=== PATIENT | male | born 1965 | race African-American/Black ===

== ENCOUNTER 2019-03-30 14:11 | Inpatient (IN) | payer OTHER ==
[2019-03-30 17:36] VITALS: BMI 16.9
--- NOTE | 2019-03-30 18:13 | HP ---
CIWA Score - Admission Criteria OASAS Guidelines: Admission for Medically Managed Detox: Requires at least one of the followin. CIWA greater than 12 2. Seizures within the past 24 hours 3. Delirium tremens within the past 24 hours 4. Hallucinations within the past 24 hours 5. Acute intervention needed for co occurring medical disorder 6. Acute intervention needed for co occurring psychiatric disorder 7. Severe withdrawal that cannot be handled at a lower level of care (continued vomiting, continued diarrhea, abnormal vital signs) requiring intravenous medication and/or fluids 8. Admitting History and Physical - Admission Chief Complaint: "I'm here for rehab". History of Present Illness: A 53year old male with history of anxiety, depression, and cocaine use disorder who presents here today requesting for rehab after he was referred from [facility]. Pt states his last rehab was 3[facility] ago at [facility]. Pt reports that he smokes $50 worth of cocaine daily and several attempts to quit completely has failed. History Source: Patient Limitations to Obtaining History: No Limitations - Past Medical History Psych: Yes: Addictions, Anxiety, Depression - Smoking History Smoking history: Current some day smoker Have you smoked in the past 12 months: Yes Aproximately how many cigarettes per day: 5 - Alcohol/Substance Use Hx Alcohol Use: No History of Substance Use: reports: Cocaine - Social History Usual Living Arrangement: Yes: Alone, Other (penitentiary) Do you think of yourself as: Straight/Heterosexual ADL: Independent History of Recent Travel: No Admission [facility] Allergies/Adverse Reactions: Allergies Allergy/AdvReac Type Severity Reaction Status Date / Time bee pollen Allergy Verified 03/30/19 17:31 No Known Drug Allergies Allergy Verified 03/30/19 17:31 wool Allergy Verified 03/30/19 17:31 Exam Limitations: No Limitations - Ebola screening Have you traveled outside of the country in the last 21 days: No Have you had contact with anyone from an Ebola affected area: No Have you been sick,other than usual withdrawal symptoms: No Do you have a fever: No - Review of Systems Constitutional: Loss of Appetite EENT: reports: No Symptoms Reported Respiratory: reports: No Symptoms reported Cardiac: reports: No Symptoms Reported GI: reports: No Symptoms Reported : reports: No Symptoms Reported Musculoskeletal: reports: No Symptoms Reported Integumentary: reports: No Symptoms Reported Endocrine: reports: No Symptoms Reported Hematology: reports: No Symptoms Reported Psychiatric: reports: Mood/Affect Appropiate, Anxious Other Systems: Reviewed and Negative Patient History - Patient Medical History Hx Asthma: No Hx Chronic Obstructive Pulmonary Disease (COPD): No Hx Cancer: No Hx Cardiac Disorders: No Hx Congestive Heart Failure: No Hx Hypertension: No Hx Hypercholesterolemia: No Hx Pacemaker: No HX Cerebrovascular Accident: No Hx Seizures: No Hx Diabetes: No Hx Gastrointestinal Disorders: No Hx Liver Disease: No Hx Genitourinary Disorders: No Hx Sexually Transmitted Disorders: No Hx Renal Disease (ESRD): No Hx Thyroid Disease: No Hx Human Immunodeficiency Virus (HIV): No (can't recall the last time he did HIV test.) Hx Hepatitis C: No Hx Depression: Yes Hx Suicide Attempt: No Hx Bipolar Disorder: No Hx Schizophrenia: No - Patient Surgical History Past Surgical History: Yes Hx Neurologic Surgery: No Hx Cataract Extraction: No Hx Cardiac Surgery: No Hx Lung Surgery: No Hx Breast Surgery: No Hx Breast Biopsy: No Hx Abdominal Surgery: No Hx Appendectomy: No Hx Cholecystectomy: No Hx Genitourinary Surgery: No Hx Section: No Hx Orthopedic Surgery: Yes (RIGHT KNEE SX, LEFT SHOULDER SX, 1981) Anesthesia Reaction: No - PPD History Previous Implant?: Yes Documented Results: Negative w/o proof PPD to be Administered?: Yes - Smoking Cessation Smoking history: Current some day smoker Have you smoked in the past 12 months: Yes Aproximately how many cigarettes per day: 5 Cigars Per Day: 0 Hx Chewing Tobacco Use: No Initiated information on smoking cessation: Yes 'Breaking Loose' booklet given: 03/30/19 - Substance & Tx. History Hx Substance Use Treatment: No - Substances abused Cocaine Substance route: Smoking Frequency: Daily Amount used: $50 Age of first use: 21 Date of last use: 03/29/19 Admission Physical Exam [facility] - Vital Signs Vital Signs: Vital Signs - 24 hr 03/30/19 17:33 Temperature 97.8 F Pulse Rate 94 H Respiratory 18 Rate Blood Pressure 136/80 - Physical General Appearance: Yes: No Apparent Distress HEENTM: Yes: EOMI, Hearing grossly Normal, Normal Voice, KARIE, Tm's normal Respiratory: Yes: Chest Non-Tender, Lungs Clear, Normal Breath Sounds, No Respiratory Distress Neck: Yes: No masses,lesions,Nodules, Trachea in good position Breast: Yes: Within Normal Limits Cardiology: Yes: Regular Rhythm, Regular Rate, S1, S2 Abdominal: Yes: Normal Bowel Sounds, Non Tender, Flat, Soft Genitourinary: Yes: Within Normal Limits Back: Yes: Normal Inspection Musculoskeletal: Yes: full range of Motion, Gait Steady Extremities: Yes: Normal Capillary Refill, Normal Range of Motion, Non-Tender Neurological: Yes: Alert, Motor Strength 5/5, Normal Response Integumentary: Yes: Dry, Warm Lymphatic: Yes: Within Normal Limits - Diagnostic (1) Anxiety disorder Current Visit: Yes Status: Acute (2) Depressive disorder Current Visit: Yes Status: Chronic (3) Cocaine dependence Current Visit: No Status: Acute (4) Cocaine-induced mood disorder Current Visit: No Status: Chronic Cleared for Admission BHS - Detox or Rehab Claeared for Rehab Admission: Yes Breathalyzer - Breathalyzer Breathalyzer: 0 Urine Drug Screen - Test Device Lot number: [id number] Expiration date: 10/05/20 - Control Is test valid?: Yes - Results Drug screen NEGATIVE: No Urine drug screen results: ALYSSA-Cocaine Inpatient Rehab Admission - Rehab Decision to Admit Inpatient rehab admission?: Yes - Initial Determination Are CD services needed?: Yes Free of communicable disease: Yes Not in need of hospitalization: Yes - Rehab Admission Criteria Previous failed treatment: Yes Poor recovery environment: Yes Comorbidities: Yes Lacks judgement: Yes Patient is meeting Inpatient Rehab admission criteria:: Yes
[2019-03-30] MEDS ORDERED: guaiFENesin 200 MG/10 ML 10 ML UNIT-DOSE CUPS PO PRN (18:25)
[2019-03-30] MEDS ORDERED: MAG HYDROX/AL HYDROX/SIMETH 30 ML UNIT-DOSE CUP PO PRN (18:25)
[2019-03-30] MEDS ORDERED: IBUPROFEN 400 MG TABLET (FP) PO PRN (18:25)
[2019-03-30] MEDS ORDERED: MAGNESIUM HYDROX 2400MG/30ML ORAL SUSPENSION 30 ML CUP PO PRN (18:25)
[2019-03-30] MEDS ORDERED: MENTHOL/PHENOL 1 EACH UD MM PRN (18:25)
[2019-03-30] MEDS ORDERED: hydrOXYzine PAMOATE 25 MG CAPSULE (FP) PO PRN (18:25)
[2019-03-30] MEDS ORDERED: ACETAMINOPHEN 325 MG TABLET (FP) PO PRN (18:25)
[2019-03-30] MEDS ORDERED: MAGNESIUM CITRATE 300 ML BOTTLE PO PRN (18:25)
[2019-03-30] MEDS ORDERED: LOPERAMIDE HCL 2 MG CAPSULE PO PRN (18:25)
[2019-03-30] MEDS ORDERED: P-EPHED 60MG/TRIPROLIDI 2.5MG TABLET PO PRN (18:25)
[2019-03-30] MEDS: THIAMINE HCL 100 MG TABLET (FP) PO SCH (22:03)
[2019-03-31 09:45] LABS: HEMATOCRIT 43.7 % (35.4-49); HEMOGLOBIN 14.2 GM/dL (11.7-16.9); MCH 31.7 pg (25.7-33.7); MCHC 32.5 g/dl (32.0-35.9); MEAN CELL VOLUME 97.4 fl (80-96); MEAN PLT VOLUME 9.7 fl (7.5-11.1); PLATELET COUNT 204 K/MM3 (134-434); RBC 4.49 M/mm3 (4.00-5.60); WHITE BLOOD COUNT 8.2 K/mm3 (4.0-10.0)
[2019-03-31 10:05] LABS: ALBUMIN 3.1 g/dl (3.4-5.0); BILIRUBIN,TOTAL 0.8 mg/dL (0.2-1); BLOOD UREA NITROGEN 18.2 mg/dL (7-18); CALCIUM 8.6 mg/dL (8.5-10.1); CREATININE 1.2 mg/dL (0.55-1.3); POTASSIUM 4.5 mmol/L (3.5-5.1)
[2019-03-31] MEDS: PRENATAL VITAMINS W/ FOLIC ACID TABLET (FP) PO SCH (10:48)
--- NOTE | 2019-03-31 13:49 | PN ---
[facility] Progress Note Note: PATIENT ADMITTED TO [facility] FOR COCAINE DEPENDENCE. PATIENT HAS PMH OF ANXIETY, DEPRESSION AND CRACK/ALYSSA USE. PATIENT DEFERRED PHYSICAL ASSESSMENT AT THIS TIME HE STATES " I AM TIRED RIGHT NOW" Vital Signs Temperature 98.2 F 03/31/19 07:03 Pulse Rate 63 03/31/19 07:03 Respiratory Rate 18 03/31/19 07:03 Blood Pressure 129/76 03/31/19 07:03 O2 Sat by Pulse Oximetry (%) Laboratory Tests 03/31/19 03/31/19 07:30 07:30 WBC 8.2 RBC 4.49 Hgb 14.2 Hct 43.7 MCV 97.4 H MCH 31.7 MCHC 32.5 RDW 14.0 Plt Count 204 MPV 9.7 Sodium 144 Potassium 4.5 Chloride 110 H Carbon Dioxide 31 Anion Gap 3 L BUN 18.2 H Creatinine 1.2 Est GFR (CKD-EPI)AfAm 79.53 Est GFR (CKD-EPI)NonAf 68.62 Random Glucose 98 Calcium 8.6 Total Bilirubin 0.8 AST 15 ALT 15 Alkaline Phosphatase 90 Total Protein 6.0 L Albumin 3.1 L LABS REVIEWED. VITAL SIGNS STABLE. CONTINUE REHAB SERVICES FOR COCAINE DEPENDENCE.
--- NOTE | 2019-03-31 17:57 | CONSULT ---
[facility] Psychiatric Consult - Data Date of interview: 03/31/19 Admission source: [facility] Identifying data: First visit to [facility] and direct admission to [address] for this 53 y/o AA male referred from [facility] for rehabilitative care addressing his KAT issues (cocaine, nicotine) co -morbid with MDD and Anxiety Disorder. Patient is single, no dependents, homeless (long term resident), unmployed and supported on welfare. Substance Abuse History: Discussed with the patient. Details in current [facility] report as follows : Smoking history: Current some day smoker. Have you smoked in the past 12 months: Yes. Aproximately how many cigarettes per day: 5. Cigars Per Day: 0. Hx Chewing Tobacco Use: No. Initiated information on smoking cessation: Yes. 'Breaking Loose' booklet given: 03/30/19. - Substance & Tx. History. Hx Substance Use Treatment: No. - Substances abused. Cocaine. Substance route: Smoking. Frequency: Daily. Amount used: $50. Age of first use: 21. Date of last use: 03/29/19 Medical History: Remarkable for a history of orthosurgery (right knee + left shoulder in 1981). Psychiatric History: No reported history of psychiatric hospitalizations. Patient indicates that he has been diagnosed with MDD and Anxiety Disorder. [facility] Vann [facility] in [place]. Has been prescribed prozac 30 mg/day + trazodone (dose not recalled). Patient declares that he has NOT taken these medications for past 3 months. Denies history of suicide attempts. Physical/Sexual Abuse/Trauma History: Patient denies history of abuse. History of service. Stationed for 3 years in [place] (1985). No prior exposure to combat situations. Discharge status not disclosed. Additional Comment: Urine drug screen results: ALYSSA-Cocaine. Noted. Mental Status Exam - Mental Status Exam Alert and Oriented to: Time, Place, Person Cognitive Function: Good Patient Appearance: Well Groomed (thin habitus) Mood: Anxious, Hopeful Affect: Appropriate, Normal Range Patient Behavior: Fatigued, Appropriate, Cooperative Speech Pattern: Clear, Appropriate Voice Loudness: Normal Thought Process: Intact, Goal Oriented Thought Disorder: Not Present Hallucinations: Denies Suicidal Ideation: Denies Homicidal Ideation: Denies Insight/Judgement: Fair Sleep: Poorly, Difficulty falling asleep Appetite: Good Gait/Station: Normal Psychiatric Findings - Problem List ([place] 1, 2,3) (1) Cocaine dependence Current Visit: Yes Status: Chronic (2) Nicotine dependence Current Visit: Yes Status: Chronic (3) Anxiety disorder Current Visit: Yes Status: Chronic (4) Depressive disorder Current Visit: Yes Status: Chronic (5) Substance induced mood disorder Current Visit: Yes Status: Chronic (6) Non-compliance Current Visit: Yes Status: Chronic Comment: Non-adherent to OPD care and medications for past three months. (7) Insomnia Current Visit: Yes Status: Chronic - Initial Treatment Plan Initial Treatment Plan: Psychoeducation. Sleep hygiene. Support. Motivational counseling provided in this session. Groups. Medications resumed as : prozac 20 mg po daily + trazodone 50 mg po hs. Side effects/benefits of both drugs are discussed with patient. Made aware of potential for suicidal ideation, sexual dysfunction and priapism. Patient has expressed his agreement with this plan of care. Gave verbal consent to MD. Perez.
[2019-03-31] MEDS: traZODone HCL 50 MG TABLET (FP) PO SCH (21:12)
[2019-03-31] MEDS: THIAMINE HCL 100 MG TABLET (FP) PO SCH (21:12)
[2019-03-31] MEDS: MELATONIN 5 MG TABLETS PO PRN (21:12)
[2019-04-01] MEDS: FLUoxetine HCL 20 MG CAPSULE PO SCH (09:52)
[2019-04-01] MEDS: PRENATAL VITAMINS W/ FOLIC ACID TABLET (FP) PO SCH (09:52)
[2019-04-01 18:48] LABS: URINE APPEARANCE Clear; URINE BILIRUBIN Negative (NEGATIVE); URINE COLOR Yellow; URINE GLUCOSE (UA) Negative (NEGATIVE); URINE KETONE Trace (NEGATIVE); URINE LEUK ESTERASE Negative (NEGATIVE); URINE NITRITE Negative (NEGATIVE); URINE PROTEIN Negative (NEGATIVE); URINE UROBILINOGEN 0.2 mg/dL (0.2-1.0)
[2019-04-01] MEDS: MELATONIN 5 MG TABLETS PO PRN (21:30)
[2019-04-01] MEDS: traZODone HCL 50 MG TABLET (FP) PO SCH (21:30)
[2019-04-01] MEDS: THIAMINE HCL 100 MG TABLET (FP) PO SCH (21:30)
[2019-04-02] MEDS: PRENATAL VITAMINS W/ FOLIC ACID TABLET (FP) PO SCH (09:37)
[2019-04-02] MEDS: FLUoxetine HCL 20 MG CAPSULE PO SCH (09:37)
[2019-04-02] MEDS: traZODone HCL 50 MG TABLET (FP) PO SCH (21:01)
[2019-04-02] MEDS: MELATONIN 5 MG TABLETS PO PRN (21:01)
[2019-04-02] MEDS: THIAMINE HCL 100 MG TABLET (FP) PO SCH (21:01)
[2019-04-03] MEDS: PRENATAL VITAMINS W/ FOLIC ACID TABLET (FP) PO SCH (09:31)
[2019-04-03] MEDS: FLUoxetine HCL 20 MG CAPSULE PO SCH (09:31)
[2019-04-03] MEDS: traZODone HCL 50 MG TABLET (FP) PO SCH (21:09)
[2019-04-03] MEDS: THIAMINE HCL 100 MG TABLET (FP) PO SCH (21:09)
[2019-04-03] MEDS: MELATONIN 5 MG TABLETS PO PRN (21:09)
[2019-04-04] MEDS: PRENATAL VITAMINS W/ FOLIC ACID TABLET (FP) PO SCH (10:24)
[2019-04-04] MEDS: FLUoxetine HCL 20 MG CAPSULE PO SCH (10:24)
[2019-04-04] MEDS: MELATONIN 5 MG TABLETS PO PRN (21:33)
[2019-04-04] MEDS: THIAMINE HCL 100 MG TABLET (FP) PO SCH (21:33)
[2019-04-04] MEDS: traZODone HCL 50 MG TABLET (FP) PO SCH (21:33)
[2019-04-05] MEDS: PRENATAL VITAMINS W/ FOLIC ACID TABLET (FP) PO SCH (09:48)
[2019-04-05] MEDS: FLUoxetine HCL 20 MG CAPSULE PO SCH (09:49)
[2019-04-05] MEDS: THIAMINE HCL 100 MG TABLET (FP) PO SCH (21:09)
[2019-04-05] MEDS: MELATONIN 5 MG TABLETS PO PRN (21:09)
[2019-04-05] MEDS: traZODone HCL 50 MG TABLET (FP) PO SCH (21:09)
[2019-04-06] MEDS: PRENATAL VITAMINS W/ FOLIC ACID TABLET (FP) PO SCH (10:02)
[2019-04-06] MEDS: FLUoxetine HCL 20 MG CAPSULE PO SCH (10:02)
[2019-04-06] MEDS: traZODone HCL 50 MG TABLET (FP) PO SCH (21:35)
[2019-04-06] MEDS: MELATONIN 5 MG TABLETS PO PRN (21:35)
[2019-04-06] MEDS: THIAMINE HCL 100 MG TABLET (FP) PO SCH (21:35)
[2019-04-07] MEDS: PRENATAL VITAMINS W/ FOLIC ACID TABLET (FP) PO SCH (09:51)
[2019-04-07] MEDS: FLUoxetine HCL 20 MG CAPSULE PO SCH (09:51)
--- NOTE | 2019-04-07 15:10 | PN ---
S Progress Note Note: Patient reports experiencing difficulty to sleep despite taking Trazadone 50 mg/ hs. Will increase Trazadone dosage to 100 mg/hs
[2019-04-07] MEDS: MELATONIN 5 MG TABLETS PO PRN (21:13)
[2019-04-07] MEDS: THIAMINE HCL 100 MG TABLET (FP) PO SCH (21:13)
[2019-04-07] MEDS: traZODone HCL 100 MG TABLET (FP) PO SCH (21:14)
[2019-04-08] MEDS: FLUoxetine HCL 20 MG CAPSULE PO SCH (10:16)
[2019-04-08] MEDS: PRENATAL VITAMINS W/ FOLIC ACID TABLET (FP) PO SCH (10:16)
[2019-04-08] MEDS: THIAMINE HCL 100 MG TABLET (FP) PO SCH (21:48)
[2019-04-08] MEDS: traZODone HCL 100 MG TABLET (FP) PO SCH (21:48)
[2019-04-09] MEDS: PRENATAL VITAMINS W/ FOLIC ACID TABLET (FP) PO SCH (10:10)
[2019-04-09] MEDS: FLUoxetine HCL 20 MG CAPSULE PO SCH (10:10)
[2019-04-09] MEDS: traZODone HCL 100 MG TABLET (FP) PO SCH (21:11)
[2019-04-09] MEDS: THIAMINE HCL 100 MG TABLET (FP) PO SCH (21:11)
[2019-04-09] MEDS: MELATONIN 5 MG TABLETS PO PRN (21:12)
[2019-04-10] MEDS: FLUoxetine HCL 20 MG CAPSULE PO SCH (10:02)
[2019-04-10] MEDS: PRENATAL VITAMINS W/ FOLIC ACID TABLET (FP) PO SCH (10:02)
[2019-04-10] MEDS: THIAMINE HCL 100 MG TABLET (FP) PO SCH (21:00)
[2019-04-10] MEDS: MELATONIN 5 MG TABLETS PO PRN (21:00)
[2019-04-10] MEDS: traZODone HCL 100 MG TABLET (FP) PO SCH (21:00)
[2019-04-11] MEDS: FLUoxetine HCL 20 MG CAPSULE PO SCH (10:25)
[2019-04-11] MEDS: PRENATAL VITAMINS W/ FOLIC ACID TABLET (FP) PO SCH (10:25)
--- NOTE | 2019-04-11 11:55 | DS ---
[facility] Rehab Discharge Summary - [facility] Rehab Discharge Summary Admission Date: 03/30/19 Discharge Date: 04/12/19 - History Present History: Cocaine dependence Pertinent Past History: A 53year old male with history of anxiety, depression, and cocaine use disorder for rehab after he was referred from [facility]. Last rehab was 3 year ago at [facility]. Pt reports that he smokes $50 worth of cocaine daily and several attempts to quit completely has failed. - Discharge Physical Exam Vital Signs: Vital Signs Temperature 98.0 F 04/11/19 06:58 Pulse Rate 63 04/11/19 06:58 Respiratory Rate 20 04/11/19 06:58 Blood Pressure 101/59 L 04/11/19 06:58 O2 Sat by Pulse Oximetry (%) Pertinent Admission Physical Exam Findings: Physical General Appearance: No Apparent Distress HEENTM: KARIE, Respiratory: Lungs Clear Cardiology: S1, S2 Abdominal: +Bowel Sounds, Non Tender, Flat, Soft Musculoskeletal: full range of Motion, Gait Steady Neurological: Cn2-12 - Treatment Discharge Condition: Outpatient referral accepted (patient will go to [facility]. Medically stable for discharge) - Medication Discharge Medications: Ambulatory Orders Fluoxetine HCl [Prozac -] 20 mg PO DAILY #30 capsule 04/11/19 traZODone HCL [Desyrel -] 100 mg PO HS #30 tablet 04/11/19 - Medication-Assisted Treatment (MAT) Medication-Assisted Treatment (MAT): No - Discharge Instructions Diet, activity, other medical instructions: Diet: as tolerated Activity: as tolerated Other medical instructions: Please follow up with referral to [facility] - Diagnosis (1) Cocaine dependence Current Visit: Yes Status: Chronic - Follow-up Referral Minutes to complete discharge: 17 - AMA Did Patient Leave Against Medical Advice: No
--- NOTE | 2019-04-11 13:52 | PN ---
[facility] Progress Note Note: Patient is scheduled for discharge tomorrow. Scripts for 30 days supply of medications(Prozac 20 mg/day, Trazadone 100 mg/hs) will be electronically transmitted to [facility] at [address] [place] [id number]
[2019-04-11] MEDS: MELATONIN 5 MG TABLETS PO PRN (21:07)
[2019-04-11] MEDS: traZODone HCL 100 MG TABLET (FP) PO SCH (21:07)
[2019-04-11] MEDS: THIAMINE HCL 100 MG TABLET (FP) PO SCH (21:07)
[2019-04-12 07:05] VITALS: BP 102/56; PULSE 61; TEMP 98
[2019-04-12] MEDS: PRENATAL VITAMINS W/ FOLIC ACID TABLET (FP) PO SCH (09:17)
[2019-04-12] MEDS: FLUoxetine HCL 20 MG CAPSULE PO SCH (09:17)
== END 2019-04-12 09:30 | disposition home or self-care (01) | DRG 772 ==
LOC: YASAS 14:11 → Y3W 18:58
PROVIDERS: ADMIT Allergy & Immunology; ATTEND Allergy & Immunology
PROC: HZ42ZZZ Group Counseling for Substance Abuse Treatment, Cognitive-Behavioral (ICD-10-PCS; principal; 2019-03-30)
DX: F14.20 Cocaine dependence, uncomplicated (principal); F17.210 Nicotine dependence, cigarettes, uncomplicated; F41.9 Anxiety disorder, unspecified; F32.9 Major depressive disorder, single episode, unspecified; F19.24 Other psychoactive substance dependence with psychoactive substance-induced mood disorder; G47.00 Insomnia, unspecified; Z91.19 Patient's noncompliance with other medical treatment and regimen; Z91.038 Other insect allergy status; Z91.048 Other nonmedicinal substance allergy status
CPT/HCPCS: 36415; 80053; 81003; 85027; 86593; 87389